=== PATIENT | male | born 1955 | race American Indian/Alaskan Native ===

== ENCOUNTER 2022-02-05 13:39 | Emergency (ER) | payer BC ==
[~2022-02-05] VITALS: Ht 177.8 cm; Wt 108.2 kg
[2022-02-05 13:49] VITALS: TEMP 98.4
[2022-02-05 14:47] LABS: ALANINE AMINOTRANSFERASE 18 U/L (0-55); ALBUMIN 3.6 gm/dL (3.4-4.8); ALKALINE PHOSPHATASE 66 U/L (40-150); ANION GAP 8 mmol/L (7-16); AST,SGOT 21 U/L (5-34); BILIRUBIN,TOTAL 0.5 mg/dL (0.2-1.2); BLOOD UREA NITROGEN 8 mg/dL (8-26); CARBON DIOXIDE 23 mmol/L (23-31); CHLORIDE 109 mmol/L (98-107); CREATININE, serum 0.92 mg/dL (0.72-1.25); GLUCOSE 134 mg/dL (70-99); POTASSIUM 4.2 mmol/L (3.5-4.5); SODIUM 140 mmol/L (136-145); TOTAL PROTEIN 7.4 gm/dL (6.2-8.1)
[2022-02-05 14:51] LABS: BASO # 0.1 K/mm3 (0.0-0.2); BASO % 0.9 % (0.0-2.0); EOS # 0.2 K/mm3 (0.0-0.7); EOS % 1.9 % (0.0-4.0); GRAN # 4.2 K/mm3 (1.4-6.5); GRAN % 53.2 % (42.2-75.2); HEMATOCRIT 39.7 % (42.0-52.0); HEMOGLOBIN 13.6 g/dl (13.5-18.0); LYMPH # 2.5 K/mm3 (1.2-3.4); LYMPH % 31.4 % (20.0-51.0); MEAN CELL VOLUME 88 fl (80.0-100.0); MEAN CORPUSCULAR HEMOGLOBIN 30 pg (27-31); MEAN CORPUSCULAR HGB CONC 34 g/dl (33.0-37.0); MEAN PLATELET VOLUME 10.5 fl (7.4-10.4); MONO % 12.5 % (1.7-9.3); PLATELET COUNT 250 K/mm3 (130-400); RED BLOOD COUNT 4.49 M/mm3 (4.20-5.60); REDCELL DISTRIBUTION WIDTH-CV 12.7 % (11.5-14.5)
[2022-02-05 14:53] LABS: TROPONIN-I < 0.010 ng/mL (0.00-0.033)
[2022-02-05 15:57] VITALS: BP 161/69; PULSE 90
== END 2022-02-05 15:57 | disposition home or self-care (01) ==
LOC: COL.ER 13:39
PROVIDERS: Personal Emergency Response Attendant; Physician Assistant
DX: I49.3 Ventricular premature depolarization (principal); Z87.891 Personal history of nicotine dependence